=== PATIENT | female | born 1995 | race African-American/Black ===

== ENCOUNTER 2019-09-21 21:55 | Inpatient (IN) | payer MEDICAID, SELFPAY ==
[2019-09-21 16:35] VITALS: BMI 28.6
[2019-09-21 22:00] VITALS: BMI 28.6
[2019-09-21] MEDS: Lactated Ringers 1,000 ML 50 ML IV (22:15)
[2019-09-21] MEDS: Lactated Ringers 500 ML 999 ML IV (22:25)
[2019-09-21 22:45] LABS: Absolute Lymphocyte Count 1.05 X10^3/uL (0.83-4.51); Absolute Neutrophil Count 12.6 X10^3/uL (2.0-7.7); Basophil# 0.03 X10^3/uL; Basophil% 0.2 % (0-1); Eosinophil# 0.16 X10^3/uL; Eosinophils% 1.1 % (0-5); Hematocrit 42.6 % (37-47); Hemoglobin 13.7 g/dL (12.0-15.0); Lymphocyte # 1.05 X10^3/ul (4.0); Mean Corp Hgb Conc 32.2 g/dL (32-36); Mean Corpuscular Volume 86.9 fL (81-99); Monocyte# 1.05 X10^3/uL; NRBC Flagged by Analyzer 0 % (0-5); Neutrophil # 12.56 X10^3/uL (2.7-7.7); Neutrophil % 83.5 % (47-70); POSITIVE MORPHOLOGY YES; Platelet Count 191 K/mm3 (150-450); RBC Distribution Width SD 73.7 fl (35.1-43.9)
[2019-09-21 22:50] LABS: Differential Indicated SCAN CRITERIA MET
[2019-09-21] MEDS: Ondansetron 4 MG/2 ML Vial IV (22:55)
[2019-09-21 23:05] LABS: ROM Internal Control Test YES-OK TO RESULT pt. (Internal QC); ROM Patient Test Negative (Negative)
[2019-09-21 23:08] LABS: Differential Comment SCANNED
[2019-09-21] MEDS: fentaNYL-bupivacaine (epidural) 100 ML BAG EPIDURAL (23:17)
--- NOTE | 2019-09-22 00:57 | PCM.HP.OB ---
History Date of Admission: 09/21/19 Final BRYSON: 09/21/19 Final BRYSON Source: US <20 weeks Gestational age: 40 Weeks and 1 Days History of this : This is a 24 year-old, G 1P0 at 40 weeks gestation presents complaining of contractions. Patient was found to be 5 cm with intact membranes. Patient admitted for labor. Allergies No Known Allergies Allergy (Verified 09/21/19 16:37) Smoking Status: Never smoker Alcohol: None Number of Fetus(es): 1 History Past Pregnancies: Past Pregnancies Delivery Date Name GA/ Weeks Outcome Route Wt Sex Labor Length Anesthesia Delivery Location Provider FOB Labs: GBS neg Expected Delivery Method: Spontaneous Vaginal Physical Exam General: Alert, Oriented x3 Abdomen: Soft, Non Tender, Gravid Neurological: Cranial nerves II-XII grossly intact Estimated gestational size: Appropriate for gestational size Presentation: Cephalic Cervix Dilation (cm): 5 Assessment/Plan This is a 24 year-old, G 1P0 at 40 weeks gestation in labor admit to l&D monitor FHR/TOCO anticipate epidural for pain Pitocin if needed for augmentation
[2019-09-22 01:14] LABS: Amphetamine Urine VISTA NEGATIVE (<1000 ng/mL); Barbiturate Urine VISTA NEGATIVE (< 200 ng/mL); Benzodiazepine Urine VISTA NEGATIVE (< 200 ng/mL); Cocaine Urine VISTA NEGATIVE (< 300 ng/mL); Ecstacy Urine VISTA NEGATIVE (< 500 ng/mL); Methadone Urine VISTA NEGATIVE (< 300 ng/mL); PCP Urine VISTA NEGATIVE (< 25 ng/mL); THC Urine VISTA NEGATIVE (< 50 ng/mL); Vista UDS pH Range 7
--- NOTE | 2019-09-22 01:36 | PCM.PN.BLA ---
Progress Note Patient seen at bedside doing well. Resting comfortably with epidural in place. Vaginal exam performed artificial rupture membranes performed clear fluid. Patient is 8 cm 90% effaced 0 station. Anticipate normal spontaneous vaginal delivery
[2019-09-22] MEDS: Ondansetron 4 MG/2 ML Vial IV (03:47)
[2019-09-22] MEDS: fentaNYL-bupivacaine (epidural) 100 ML BAG EPIDURAL (03:58)
[2019-09-22] MEDS: Lactated Ringers 1,000 ML 200 ML IV (05:00)
[2019-09-22] MEDS: Oxytocin 30 units/NS 500 ml 30 UNITS/500 ML IV.SOLN 334 UNITS IV (05:20)
--- NOTE | 2019-09-22 05:28 | PCM.OPRPT ---
Vaginal Delivery Maternal Presentation: Active Labor Amniotic Membrane Rupture Type: Artificial Amniotic Fluid Description: Clear Final BRYSON: 09/22/19 Gestational age: 40 Weeks and 0 Days Date of Procedure: 09/22/19 Pre-Operative Diagnosis: term gestation, active labor Post-Operative Diagnosis: Live female Surgery/ Procedure Performed: Spontaneous Vaginal Delivery Type of Anesthesia: Epidural Description of Procedure: of a live female born without complication. Infant was vigorous at time of delivery placed on mother's chest for immediate skin to skin. Delayed cord clamping was performed. Gentle traction of the cord for delivery of the placenta caused a cord avulsion-manual removal of the placenta was performed by out difficulty. Placenta evaluated noted to be intact. No membranes or palpable retained placenta was appreciated on uterine exam. vagina and cervix were examined no lacerations Presentation: Vertex Placental Delivery Description: Manual Removal Placenta Disposition: [facility] Cord Vessel Description: 3 Vessels Cord Entanglement: None Drain: Lion to straight drain Estimated Blood Loss: 200 Infant A gender: Female (1 minute): 9 (5 minute): 10 Episiotomy Description: None Laceration: None Medications given after delivery: IV Pitocin Complications: None
[2019-09-22] MEDS: 0.9% Saline Lock 10 ML Syringe IV (08:39)
[2019-09-22 12:10] VITALS: BP 104/56; PULSE 97; RESP 20; TEMP 37.3
[2019-09-22] MEDS: Ibuprofen 600 MG Tablet PO (13:41)
[2019-09-22 16:30] VITALS: BP 118/74; PULSE 110; RESP 18; TEMP 37.5
[2019-09-22 20:00] VITALS: BP 93/54; PULSE 98; RESP 18; TEMP 37.1
[2019-09-23 00:27] VITALS: BP 114/63; PULSE 92; RESP 18; TEMP 36.8
[2019-09-23] MEDS: Ibuprofen 600 MG Tablet PO (00:33)
[2019-09-23 04:15] VITALS: BP 101/52; PULSE 68; RESP 16; TEMP 36.4
[2019-09-23 09:05] VITALS: BP 100/56; PULSE 90; RESP 18; TEMP 36.9
--- NOTE | 2019-09-23 11:23 | PCM.PN.OB ---
Subjective: No complaints - Physical Exam Vitals/I&O's: Vital Signs Temp Pulse Resp BP 97.5 F L 68 16 101/52 L 09/23/19 04:15 09/23/19 04:15 09/23/19 04:15 09/23/19 04:15 Oxygen Delivery Method Room Air Weight: 172 lb 3.2 oz Body Mass Index (BMI) 28.6 Intake and Output for Last 24 Hours 09/21/19 09/22/19 09/23/19 23:59 23:59 23:59 Intake Total 508.33 / 508.33 1805.00 / 1805.00 Output Total 750 / 750 Balance 508.33 / 508.33 1055.00 / 1055.00 General: Alert, Oriented x3 Abdomen: Soft, Non Tender, Non-Distended - ff mid & below umb Extremities: No Calf Tenderness Current Medications Acetaminophen (Tylenol) 1,000 mg PO Q8H PRN PRN PRN Reason: Pain Score 1-3/10 Bisacodyl (Dulcolax) 10 mg RECTAL UD PRN PRN Reason: If no BM Dibucaine (Dibucaine) 1 applic TOPICAL TID PRN PRN; Protocol PRN Reason: Discomfort Hydrocortisone (Hytone) 1 applic TOPICAL TID PRN PRN; Protocol PRN Reason: Discomfort Ibuprofen (Motrin) 600 mg PO Q6H PRN PRN PRN Reason: Pain Score 1-3/10 Last Admin: 09/23/19 00:33 Dose: 600 mg Documented by: Methylergonovine Maleate (Methergine) 0.2 mg IM X1 PRN PRN Reason: Excess bleeding/uterine atony Ondansetron HCl (Zofran) 4 mg IV Q4H PRN PRN PRN Reason: Nausea Oxycodone HCl (Oxyir) 5 - 10 mg PO Q4H PRN PRN PRN Reason: Pain Score 4-10/10 Senna/Docusate Sodium (Senokot-S, Evelyne-Colace) 1 - 2 tablet PO DAILY PRN PRN PRN Reason: Constipation Simethicone (Mylicon) 80 mg PO PCHS PRN PRN Reason: Indigestion/Stomach pain Sodium Chloride () 5 - 15 ml IV UD PRN PRN Reason: SALINE FLUSH Last Admin: 09/22/19 08:39 Dose: 10 ml Documented by: Medical Necessity - Tobacco Use Smoking Status: Never smoker Assessment/Plan PPD#1 D/c home later today per patient request
--- NOTE | 2019-09-23 11:25 | DCINST_ITS ---
Discharge Diet: No Restrictions Discharge Activity: May Drive, May Shower Additional Instructions: If you experience any of the following, contact your healthcare provider. * Bleeding that soaks a pad every hour for 2 hours * Fever 100.4 or higher * Unrelieved incision or abdominal pain * Swelling, redness, discharge or bleeding from your incision or episiotomy site * Your incision begins to separate * Problems urinating (including inability to urinate or burning while urinating). * Visual changes * Severe headache * Flu-like symptoms * Pain or redness in one of both of your breasts * Pain, warmth, tenderness or swelling in your legs, especially the calf area * Frequent nausea and vomiting * Symptoms of depression or anxiety If you experience any of the following, call 911 or go to the nearest Emergency Room. * Chest pain * Problems breathing * Seizure activity * Partial or complete paralysis of a body part, slurred speech, weakness or drooping of the face, or a sudden inability to walk or hold your balance Allergies/Adverse Reactions: Allergies No Known Allergies Allergy (Verified 09/21/19 16:37) Medications to take at Discharge Acetaminophen [Tylenol] 1,000 mg PO Q8H PRN PRN tab 09/23/19 Ibuprofen [Motrin] 600 mg PO Q6H PRN PRN tab 09/23/19 Primary Care Physician: Care Physician,No Primary [Primary Care Provider] - Test Results: Test results from this visit will be discussed in further detail at your follow- up appointment, if applicable.
--- NOTE | 2019-09-23 11:25 | PCM.DCVAG ---
Discharge Diet: No Restrictions Discharge Activity: May Drive, May Shower Additional Instructions: If you experience any of the following, contact your healthcare provider. Bleeding that soaks a pad every hour for 2 hours Fever 100.4 or higher Unrelieved incision or abdominal pain Swelling, redness, discharge or bleeding from your incision or episiotomy site Your incision begins to separate Problems urinating (including inability to urinate or burning while urinating). Visual changes Severe headache Flu-like symptoms Pain or redness in one of both of your breasts Pain, warmth, tenderness or swelling in your legs, especially the calf area Frequent nausea and vomiting Symptoms of depression or anxiety If you experience any of the following, call 911 or go to the nearest Emergency Room. Chest pain Problems breathing Seizure activity Partial or complete paralysis of a body part, slurred speech, weakness or drooping of the face, or a sudden inability to walk or hold your balance Allergies/Adverse Reactions: Allergies No Known Allergies Allergy (Verified 09/21/19 16:37) Medications to take at Discharge Acetaminophen [Tylenol] 1,000 mg PO Q8H PRN PRN tab 09/23/19 Ibuprofen [Motrin] 600 mg PO Q6H PRN PRN tab 09/23/19 Primary Care Physician: Care Physician,No Primary [Primary Care Provider] - Test Results: Test results from this visit will be discussed in further detail at your follow-up appointment, if applicable.
[2019-09-23] MEDS: Senna/Docusate Sodium 1 Tablet PO (12:00)
[2019-09-23 14:00] VITALS: BP 109/50; PULSE 90; RESP 18; TEMP 37.3
== END 2019-09-23 14:40 | disposition home or self-care (01) | DRG 560 ==
PROVIDERS: Admitting Provider Obstetrics & Gynecology; Referring Provider Obstetrics & Gynecology; Visit Provider Obstetrics & Gynecology
DX: O48.0 Post-term pregnancy (principal); Z3A.40 40 weeks gestation of pregnancy; Z37.0 Single live birth
CPT/HCPCS: 59025; 59050; 80307; 84112; 85025; 86850; 86900; 86901; 99218; J7120; A4216; G0378; J2405